=== PATIENT | male | born 1990 | race American Indian/Alaskan Native ===

== ENCOUNTER 2022-04-01 09:59 | Outpatient (CLI) | payer OTHER ==
--- NOTE | 2022-04-01 12:44 | XRay Report ---
XR hand BILAT 2V INDICATION / CLINICAL INFORMATION: BILATERAL HAND PAIN. COMPARISON: None available. FINDINGS: BONES/JOINT(S): No acute fracture or subluxation. No significant degenerative changes. No focal bone erosions or focal osteopenia to suggest inflammatory arthropathy. SOFT TISSUES: No significant abnormality. ADDITIONAL FINDINGS: None. Signer Name: Javier Jacobson MD Signed: 04/01/2022 12:40 PM Workstation Name: [email or web address]
--- NOTE | 2022-04-01 12:46 | XRay Report ---
XR wrist BILAT 2V INDICATION / CLINICAL INFORMATION: BILATERAL WRIST PAIN. COMPARISON: None available. FINDINGS: BONES/JOINT(S): No acute fracture or subluxation. There is some sclerosis and flattening of the right lunate. No focal bone erosions or focal osteopenia to suggest inflammatory arthropathy. SOFT TISSUES: No significant abnormality. ADDITIONAL FINDINGS: None. 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 Signer Name: Javier Jacobson MD Signed: 04/01/2022 12:41 PM Workstation Name: [email or web address]
== END 2022-04-01 10:00 | disposition home or self-care (01) ==
LOC: XRAY 09:59
PROVIDERS: ATTEND Internal Medicine
DX: M25.532 Pain in left wrist (principal); M25.531 Pain in right wrist; M25.542 Pain in joints of left hand; M25.541 Pain in joints of right hand